=== PATIENT | male | born 1960 | race Caucasian/White ===

== ENCOUNTER 2020-06-29 16:15 | Outpatient (CLI) | payer OTHER, SELFPAY ==
--- NOTE | 2020-06-29 | XRR_ITS ---
PROCEDURE INFORMATION: Exam: XR Cervical Spine, 2 or 3 Views Exam date and time: 06/29/2020 4:43 PM Age: 59 years old Clinical indication: Pain; Cervicalgia; Additional info: Cericalgia TECHNIQUE: Imaging protocol: XR of the cervical spine, 2 or 3 views. COMPARISON: No relevant prior studies available. FINDINGS: Vertebrae: There is osteopenia with diffuse moderate to severe degenerative changes in the cervical spine. No acute fracture or subluxation. Soft tissues: Unremarkable. Other findings: Carotid calcifications are noted. XR/XR cervical spine 3V* [id number] IMPRESSION: Diffuse degenerative changes. No acute bony abnormality.
--- NOTE | 2020-06-29 | XRR_ITS ---
PROCEDURE INFORMATION: Exam: XR Lumbosacral Spine, 2 or 3 Views Exam date and time: 06/29/2020 5:08 PM Age: 59 years old Clinical indication: Low back pain; Additional info: Chronic pain TECHNIQUE: Imaging protocol: XR of the lumbosacral spine, 2 or 3 views. COMPARISON: No relevant prior studies available. FINDINGS: Vertebrae: There is spondylolysis of L5 with grade 1 spondylolisthesis of L5 on S1. There is severe degenerative in the lower lumbar spine with disc space narrowing marginal osteophytes and sclerosis L3-S1. There is chronic appearing in T11. No acute fracture . Soft tissues: Unremarkable. XR/XR lumbar spine 2-3V* [id number] IMPRESSION: Degenerative changes. No acute abnormality.
--- NOTE | 2020-06-29 | XRR_ITS ---
PROCEDURE INFORMATION: Exam: XR Left Knee Exam date and time: 06/29/2020 5:08 PM Age: 59 years old Clinical indication: Pain; Knee; Left; Additional info: Pain in lt knee TECHNIQUE: Imaging protocol: XR Left knee. Views: 1 or 2 views. COMPARISON: No relevant prior studies available. FINDINGS: Bones/joints: There is no knee joint effusion. The joint spaces are maintained. No acute fracture or dislocation. No chondrocalcinosis. Soft tissues: There is no foreign body. Other findings: There is no intra-articular body. XR/XR knee LT 1-2V [id number] IMPRESSION: No acute bony abnormality.
--- NOTE | 2020-06-29 | XRR_ITS ---
PROCEDURE INFORMATION: Exam: XR Right Knee Exam date and time: 06/29/2020 5:09 PM Age: 59 years old Clinical indication: Pain; Knee; Right; Additional info: Pain in RT knee TECHNIQUE: Imaging protocol: XR Right knee. Views: 1 or 2 views. COMPARISON: No relevant prior studies available. FINDINGS: Bones/joints: There is no knee joint effusion. The joint spaces are maintained. No acute fracture or dislocation. No chondrocalcinosis. Soft tissues: There is no foreign body. Other findings: There is no intra-articular body. XR/XR knee RT 1-2V [id number] IMPRESSION: No acute bony abnormality.
== END 2020-06-29 16:16 | disposition home or self-care (01) ==
LOC: RAD 16:22
PROVIDERS: Visit Provider Nurse Practitioner
DX: M25.561 Pain in right knee (principal); M54.2 Cervicalgia; M25.562 Pain in left knee; M54.5 Low back pain
CPT/HCPCS: 72040; 72100; 73560